=== PATIENT | male | born 1990 ===

== ENCOUNTER 2024-07-29 13:33 | Emergency (ER) | payer OTHER ==
[~2024-07-29] VITALS: Ht 172.7 cm; Wt 81.7 kg
== END 2024-07-29 15:26 | disposition home or self-care (01) ==
LOC: ER 13:33
DX: T54.3X1A Toxic effect of corrosive alkalis and alkali-like substances, accidental (unintentional), initial encounter (principal); T28.5XXA Corrosion of mouth and pharynx, initial encounter
CPT/HCPCS: 99283